=== PATIENT | male | born 1960 | race Caucasian/White ===

== ENCOUNTER 2016-10-21 21:09 | Emergency (ER) | payer OTHER ==
[2016-10-21 21:15] VITALS: BP 118/92; PULSE 95; TEMP 97.5; BMI 25.0
--- NOTE | 2016-10-21 21:31 | PDOC ---
History of Present Illness <Diana Gaxiola - Last Filed: 10/22/16 01:59> - General History Source: Patient Exam Limitations: No Limitations - History of Present Illness Initial Comments: 10/21/16 21:45 The patient is a 56 year old male with no PMH who presents to the ED today with lower back pain, right elbow pain, left forearm pain and right thigh pain s/p fall from a height of 15 ft. The patient states he fell from a scaffolding after the plywood broke. The patient denies head trauma and is unsure of LOC due to a period of time hes unsure of. Denies headaches, dizziness, lightheadedness or visual changes. Denies: fever, chills, cough, shortness of breath, chest pain, abdominal pain, nausea, vomiting and diarrhea. Allergies: NKDA 10/21/16 21:53 <Cami Cuevas - Last Filed: 10/22/16 02:36> - General History Source: Patient <Mian Schwartz - Last Filed: 10/22/16 02:50> - General Chief Complaint: Injury Stated Complaint: FALL Time Seen by Provider: 10/21/16 21:31 Past History <Diana Gaxiola - Last Filed: 10/22/16 01:59> <Cami Cuevas - Last Filed: 10/22/16 02:36> - Psycho/Social/Smoking Cessation Hx Suicidal Ideation: No Smoking History: Current every day smoker Number of Cigarettes Smoked Daily: 20 Information on smoking cessation initiated: No Hx Alcohol Use: No Drug/Substance Use Hx: No <Mian Schwartz - Last Filed: 10/22/16 02:50> - Past Medical History Allergies/Adverse Reactions: Allergies Allergy/AdvReac Type Severity Reaction Status Date / Time No Known Allergies Allergy Verified 10/21/16 21:12 Home Medications: Ambulatory Orders Ibuprofen [Motrin] 600 mg PO TID #30 tablet 10/22/16 Oxycodone HCl/Acetaminophen [Percocet 5-325 mg Tablet] 1 - 2 tab PO Q6H #20 tablet MDD 4 10/22/16 Review of Systems - Review of Systems Able to Perform ROS?: Yes Comments:: 10/21/16 21:45 CONSTITUTIONAL: Absent: fever, chills, diaphoresis, generalized weakness, malaise, loss of appetite HEENT: Absent: rhinorrhea, nasal congestion, throat pain, throat swelling, difficulty swallowing, mouth swelling, ear pain, eye pain, visual changes CARDIOVASCULAR: Absent: chest pain, syncope, palpitations, irregular heart rate, lightheadedness , peripheral edema RESPIRATORY: Absent: cough, shortness of breath, dyspnea with exertion, orthopnea, wheezing, stridor, hemoptysis GASTROINTESTINAL: Absent: abdominal pain, abdominal distension, nausea, vomiting, diarrhea, constipation, melena, hematochezia GENITOURINARY: Absent: dysuria, frequency, urgency, hesitancy, hematuria, flank pain, genital pain MUSCULOSKELETAL: +lower back pain, right elbow pain, left forearm pain and right thigh pain SKIN: Absent: rash, itching, pallor NEUROLOGIC: Absent: headache, focal weakness or paresthesias, dizziness, unsteady gait, seizure, mental status changes, bladder or bowel incontinence PSYCHIATRIC: Absent: anxiety, depression, suicidal or homicidal ideation, hallucinations. <Cami Cuevas - Last Filed: 10/22/16 02:36> *Physical Exam - Vital Signs Last Vital Signs Temp Pulse Resp BP Pulse Ox 97.5 F L 95 H 14 118/92 98 10/21/16 21:12 10/21/16 21:12 10/21/16 21:12 10/21/16 21:12 10/21/16 21:12 <Diana Gaxiola - Last Filed: 10/22/16 01:59> - Vital Signs Last Vital Signs Temp Pulse Resp BP Pulse Ox 97.5 F L 95 H 14 118/92 98 10/21/16 21:12 10/21/16 21:12 10/21/16 21:12 10/21/16 21:12 10/21/16 21:12 - Physical Exam Comments: 10/21/16 21:45 GENERAL: Well developed, well nourished. Awake and alert. No acute distress. HEENT: Normocephalic, atraumatic. PERRLA, EOMI. No raccoon or escalante sign. No conjunctival pallor. Sclera are non-icteric. Moist mucous membranes. Oropharynx is clear. No hemotympanum. NECK: Supple. Full ROM. No JVD. Carotid pulses 2+ and symmetric, without bruits. No thyromegaly. No lymphadenopathy. No C-spine tenderness. CARDIOVASCULAR: Regular rate and rhythm. No murmurs, rubs, or gallops. Distal pulses are 2+ and symmetric. PULMONARY: No evidence of respiratory distress. Lungs clear to auscultation bilaterally. No wheezing, rales or rhonchi. ABDOMINAL: Soft. Non-tender. Non-distended. No rebound or guarding. No organomegaly. Normoactive bowel sounds. MUSCULOSKELETAL Normal range of motion at all joints. No bony deformities. Tenderness at midline of lumbar area L1-L5. Right paraspinal tenderness. Swelling and ecchymosis to right elbow. Tenderness to right thigh. EXTREMITIES: No cyanosis. No clubbing. No edema. No calf tenderness. SKIN: Abrasion to right elbow. Small abrasion to left forearm. Warm and dry. Normal capillary refill. No rashes. No jaundice. NEUROLOGICAL: Alert, awake, appropriate. Cranial nerves 2-12 intact. Moving all extremities. No gross neurological deficits. PSYCHIATRIC: Cooperative. Good eye contact. Appropriate mood and affect 10/21/16 21:55 <Cami Cuevas - Last Filed: 10/22/16 02:36> - Vital Signs Last Vital Signs Temp Pulse Resp BP Pulse Ox 97.5 F L 95 H 14 118/92 98 10/21/16 21:12 10/21/16 21:12 10/21/16 21:12 10/21/16 21:12 10/21/16 21:12 <Mian Schwartz - Last Filed: 10/22/16 02:50> ED Treatment Course - LABORATORY CBC & Chemistry Diagram: 10/21/16 21:45 10/21/16 21:45 - ADDITIONAL ORDERS Additional order review: Laboratory Results 10/21/16 10/21/16 10/21/16 21:55 21:45 21:45 INR Sodium 139 Potassium 4.4 Chloride 105 Carbon Dioxide 27 Anion Gap 7 L BUN 16 Creatinine 0.9 Creat Clearance w eGFR > 60 Random Glucose 99 Calcium 9.0 Magnesium 2.2 Total Bilirubin 0.3 AST 41 H ALT 42 Alkaline Phosphatase 76 Creatine Kinase 177 Creatine Kinase Index 1.9 CK-MB (CK-2) 3.506 CK-MB (CK-2) Rel Index Cancelled Troponin I < 0.02 Total Protein 7.4 Albumin 3.9 Blood Type A POSITIVE Antibody Screen Negative 10/21/16 21:45 INR 1.01 Sodium Potassium Chloride Carbon Dioxide Anion Gap BUN Creatinine Creat Clearance w eGFR Random Glucose Calcium Magnesium Total Bilirubin AST ALT Alkaline Phosphatase Creatine Kinase Creatine Kinase Index CK-MB (CK-2) CK-MB (CK-2) Rel Index Troponin I Total Protein Albumin Blood Type Antibody Screen 10/21/16 21:45 RBC 5.56 MCV 86.4 MCHC 32.2 RDW 13.6 MPV 8.9 Neutrophils % 85.6 H Lymphocytes % 8.2 Monocytes % 5.2 Eosinophils % 0.5 Basophils % 0.5 - RADIOLOGY Radiograph Interpretation: 10/22/16 00:12 EXAM: CT of the thoracic spine with without contrast and lumbar spine without contrast Reviewed by Imaging extrusion utility worker: FINDINGS: CT thoracic spine: Negative for acute thoracic spinal fracture or malalignment. CT lumbar spine: Positive for acute fracture of the superior endplate of L1 with very slight loss of height predominately anteriorly. Posterior elements are intact. No retropulsion. No other lumbar spinal fracture or malalignment. EXAM: CT abdomen and pelvis with contrast Reviewed by Imaging extrusion utility worker: FINDINGS: Negative for abdominal pelvic visceral injury. Liver, gallbladder, spleen, pancreas, adrenal glands, kidneys urinary tract and urinary bladder are all intact. No acute abnormality of bowel. No pneumoperitoneum or ascites. Nonobstructing right lower pole renal stone. Vertebral injury to be described on CT of thoracic and lumbar spine to follow. <Diana Gaxiola - Last Filed: 10/22/16 01:59> - LABORATORY CBC & Chemistry Diagram: 10/21/16 21:45 10/21/16 21:45 - RADIOLOGY Radiograph Interpretation: 10/22/16 01:35 EXAM: CT cervical spine without contrast Reviewed by imaging cap and hat production supervisor FINDINGS: Negative for acute cervical fracture or malalignment is Bullous/emphysematous changes noted at the lung apices. EXAM: X-ray right hip and pelvis Reviewed by imaging cap and hat production supervisor I cannot identify a fracture of the bony pelvis or right hip on the x-ray. However, I have rereviewed the abdomen and pelvis CT and there is a very subtle acute nondisplaced fracture of the anterior cortex of the right acetabulum. EXAM: CT right femur Reviewed by imaging cap and hat production supervisor FINDINGS: No fracture. <Cami Cuevas - Last Filed: 10/22/16 02:36> - LABORATORY CBC & Chemistry Diagram: 10/21/16 21:45 10/21/16 21:45 <Mian Schwartz - Last Filed: 10/22/16 02:50> Medical Decision Making - Medical Decision Making 10/22/16 01:38 Dr. Schwartz: The scribe's documentation has been prepared under my direction and personally reviewed by me in its entirery. I confirm that the note above accurately reflects all work, treatment, procedures, and medical decision making performed by me. 10/22/16 02:44 patient is from [facility]. Patient states he needs to get home. patient has very stable injuries at this time. patient states hll go directly home and get reevaluated. 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 <Mian Schwartz - Last Filed: 10/22/16 02:50> *DC/Admit/Observation/Transfer <Diana Gaxiola - Last Filed: 10/22/16 01:59> - Attestations Scribe Attestion: 10/21/16 21:47 Documentation prepared by Cami Cuevas, acting as medical assisting instructor for Mian Schwartz MD/DO. <Cami Cuevas - Last Filed: 10/22/16 02:36> - Discharge Dispostion Admit: No <Mian Schwartz - Last Filed: 10/22/16 02:50> Diagnosis at time of Disposition: Lumbar compression fracture Qualifiers: Encounter type: initial encounter Fracture type: closed Qualified Code(s): S32.000A - Wedge compression fracture of unspecified lumbar vertebra, initial encounter for closed fracture Closed right acetabular fracture Qualifiers: Encounter type: initial encounter Sublocation of acetabulum: other portion of acetabulum Qualified Code(s): S32.491A - Other specified fracture of right acetabulum, initial encounter for closed fracture - Discharge Dispostion Disposition: HOME Condition at time of disposition: Stable - Prescriptions Prescriptions: Ibuprofen [Motrin] 600 mg PO TID #30 tablet Oxycodone HCl/Acetaminophen [Percocet 5-325 mg Tablet] 1 - 2 tab PO Q6H #20 tablet MDD 4 - Referrals Referrals: Deangelo Gilliam MD [Staff Physician] - Jhoan Deng MD [Staff Physician] - Joby Lo MD [Staff Physician] - - Patient Instructions Printed Discharge Instructions: DI for Vertebral Fracture, DI for Hip Fracture Additional Instructions: Please follow up with a hospital as soon as you get home. Get referrals for an orthopedist and a job development specialist.
[2016-10-21] MEDS ORDERED: SODIUM CHLORIDE 1,000 ML IV SCH (21:45)
[2016-10-21 21:58] LABS: BASOPHIL 0.5 % (0-2.0); EOSINOPHIL 0.5 % (0-4.5); MCH 27.8 pg (25.7-33.7); MCHC 32.2 g/dl (32.0-35.9); MEAN CELL VOLUME 86.4 fl (80-96); MEAN PLT VOLUME 8.9 fl (7.5-11.1); NEUTROPHILS 85.6 % (42.8-82.8); PLATELET COUNT 223 K/MM3 (134-434); RDW 13.6 % (11.9-15.9); WHITE BLOOD COUNT 15.1 K/mm3 (4.0-10.0)
[2016-10-21 22:13] LABS: INR 1.01 (0.82-1.09); PROTHROMBIN TIME (PATIENT) 11.1 SEC (9.98-11.88)
[2016-10-21 22:28] LABS: ALBUMIN 3.9 g/dl (3.4-5.0); ANION GAP 7 (8-16); BILIRUBIN,TOTAL 0.3 mg/dL (0.2-1.0); CO2 27 mmol/L (21-32); CREATININE 0.9 mg/dL (0.7-1.3); GLUCOSE,RANDOM 99 mg/dL (74-106); MAGNESIUM 2.2 mg/dL (1.8-2.4); SGPT/ALT 42 U/L (12-78); TOT PROT 7.4 g/dl (6.4-8.2)
[2016-10-21 22:32] LABS: ALK PHOS 76 U/L (45-117); SGOT/AST 41 U/L (15-37)
[2016-10-21 22:33] LABS: TROPONIN I < 0.02 ng/ml (0.00-0.05)
[2016-10-22] MEDS ORDERED: KETOROLAC TROMETHAMINE 30 MG/1 ML VIAL IVPUSH ONE (02:11)
[2016-10-22] MEDS ORDERED: OXYCODONE/APAP 5/325MG COMBO TABLET PO ONE (02:11)
[2016-10-22] MEDS ORDERED: OXYCODONE/APAP 5/325MG COMBO TABLET ONE (02:21)
[2016-10-22] MEDS ORDERED: KETOROLAC TROMETHAMINE 30 MG/1 ML VIAL ONE (02:21)
--- NOTE | 2016-10-22 12:12 | EKG ---
Test Reason : Blood Pressure : / mmHG Vent. Rate : 085 BPM Atrial Rate : 085 BPM P-R Int : 164 ms QRS Dur : 096 ms QT Int : 366 ms P-R-T Axes : 071 -74 064 degrees QTc Int : 435 ms NORMAL SINUS RHYTHM POSSIBLE LEFT ATRIAL ENLARGEMENT INCOMPLETE RIGHT BUNDLE BRANCH BLOCK LEFT ANTERIOR FASCICULAR BLOCK ABNORMAL ECG NO PREVIOUS ECGS AVAILABLE Confirmed by DAKOTA KAYE MD ([id number]) on 10/22/2016 12:11:51 PM Referred By: Confirmed By:DAKOTA KAYE MD
== END 2016-10-22 02:56 | disposition home or self-care (01) ==
LOC: JER 21:09
PROC: 3E0333Z Introduction of Anti-inflammatory into Peripheral Vein, Percutaneous Approach (ICD-10-PCS; principal; 2016-10-21)
PROC: 3E0337Z Introduction of Electrolytic and Water Balance Substance into Peripheral Vein, Percutaneous Approach (ICD-10-PCS; 2016-10-21)
DX: S32.000A Wedge compression fracture of unspecified lumbar vertebra, initial encounter for closed fracture (principal); S32.491A Other specified fracture of right acetabulum, initial encounter for closed fracture; W11.XXXA Fall on and from ladder, initial encounter; Y93.9 Activity, unspecified; Y92.9 Unspecified place or not applicable; F17.210 Nicotine dependence, cigarettes, uncomplicated
CPT/HCPCS: 36415; 70450-TC; 72125-TC; 72128-TC; 72131-TC; 73523-TC; 73552-TC-RT; 74177-TC; 80053; 82550; 82553; 83735; 84484; 85025; 85610; 86850; 86900; 86901; 93005; 93010; 99283-25